=== PATIENT | female | born 1930 | race Caucasian/White ===

== ENCOUNTER 2018-02-01 10:56 | Outpatient (CLI) | payer MEDICARE ==
--- NOTE | 2018-02-01 16:18 | CT ---
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 COMPARISON: None. TECHNIQUE: Noncontrast CT of the lumbar spine is performed in the axial plane. Reformatted images are submitted for interpretation. FINDINGS: Gallbladder is surgically absent. Atherosclerosis of a nonaneurysmal aorta. No retroperitoneal mass, lymphadenopathy or hematoma. Symmetric attenuation of the psoas muscles. 5 mm of anterolisthesis of L 4 upon L5, 4 mm of anterolisthesis of L5 upon S1. Vacuum disc phenomenon at T12-L1, L1-L2, L2-L3, L3- L4 and L5-S1. Limited evaluation of the contents of the central spinal canal and neural foramina by technique. T11-T12: Mild central canal stenosis. Limited evaluation of the neural foramina. T12-L1: No high grade central canal stenosis. Mild bilateral foraminal narrowing. L1-L2: Mild central canal stenosis. There is a broad based disc bulge with posterior disc calcificati on. Mild bilateral foraminal narrowing. L2-L3: Generalized disc bulge, ligamentum flavum thickening and facet hypertrophy result in mild cent ral canal stenosis. Mild right and mild to moderate left neural foraminal narrowing. L3-L4: Vacuum disc phenomenon. Broad based disc bulge, ligamentum flavum thickening and facet hypertr ophy result in moderate central canal stenosis. Mild to moderate right and mild left neural foraminal narrowing. L4-L5: Broad based disc bulge. There is evidence of osteophyte formation. Ligamentum flavum thickenin g and facet hypertrophy are present. Moderate to severe central canal stenosis. Neural foramina are p atent bilaterally. L5-S1: Broad based disc osteophyte complex. There appears to be a central/right subarticular disc pro trusion. Disc material abuts and partially obscures the traversing right S1 nerve root. Posterior dec ompression laminectomy defect is identified. No high grade stenosis of the thecal sac. Mild bilateral foraminal narrowing. IMPRESSION: 1. Postsurgical change at L5-S1. 2. Narrowing of the right subarticular zone with partial obscuration traversing the right S1 ner ve root. 3. Moderate central canal stenosis at L3-L4. POS: [facility]
== END 2018-02-01 10:57 | disposition home or self-care (01) ==
LOC: BICCT 10:56
PROVIDERS: ATTEND Specialist
DX: M51.17 Intervertebral disc disorders with radiculopathy, lumbosacral region (principal); M48.061 Spinal stenosis, lumbar region without neurogenic claudication; Z98.890 Other specified postprocedural states
CPT/HCPCS: 72131